=== PATIENT | female | born 1935 ===

== ENCOUNTER 2018-10-18 16:58 | Outpatient (REF) | payer MEDICARE, SELFPAY ==
[2018-10-18 22:05] LABS: Anion Gap 8.8 mmol/L (3-11); BUN 25 mg/dL (7-18); CO2 24.2 mmol/L (21.0-32.0); CREATININE 0.93 mg/dL (0.55-1.02); Calcium 8.5 mg/dL (8.5-10.1); Chloride 108 mmol/L (98-107); Estimated GFR 57.86 (mL/min/1.73m2); Glucose 98 mg/dL (70-100); Potassium 4.8 mmol/L (3.5-5.1); Sodium 141 mmol/L (136-145); TSH (W/Ref FT4) 1.36 uIU/mL (0.358-3.74)
[2018-10-18 22:14] LABS: Abs Immature Grans 0.01 k/cumm (0.0-0.09); Absolute Basophil Count 0.06 k/cumm (0.0-0.2); Absolute Lymphocyte Count 1.54 k/cumm (1.2-3.4); Absolute Monocyte Count 0.52 k/cumm (0.11-0.7); Absolute Neutrophil Count 2.41 k/cumm (1.2-6.7); Basophils % 1.2; Eosinophils % 8.1; HCT 26.2 % (36.0-46.0); HGB 7.5 g/dL (12.0-15.5); Immature Grans % 0.2; Lymphocytes % 31.2; Mean Corp. HGB Concentration 28.6 g/dL (32.0-36.0); Mean Corpuscular Hemoglobin 20.7 pg (27.0-33.0); Mean Corpuscular Volume 72.4 fL (80-95); Mean Platelet Volume 9.6 fL (8.0-11.0); Monocytes % 10.5; Neutrophils % 48.8; Platelet Count 329 x1000/uL (130-400); RBC 3.62 m/cumm (4.00-5.20); RBC Distribution Width 17.9 % (11.7-14.6); White Blood Cell Count 4.94 k/cumm (4.4-10.8)
[2018-10-18 23:07] LABS: Anisocytosis 2+; Diff Comment RBC Morph Reviewed; Hypochromasia 3+; Microcytosis 2+
== END 2018-10-18 17:18 ==
LOC: NCHCN 16:58
PROVIDERS: PCP Family Medicine; Visit Provider Nurse Practitioner Family
DX: R53.83 Other fatigue (principal)
CPT/HCPCS: 80048; 84443; 85025

== ENCOUNTER 2018-10-21 11:51 | Outpatient (REF) | payer MEDICARE, SELFPAY ==
[2018-10-23 18:36] LABS: Iron 17 ug/dL (50-175); Total Iron Binding Capacity 346 ug/dL (250-450); Transferrin Sat 5 % (15-50)
[2018-10-23 19:01] LABS: Ferritin 6 ng/mL (8-388); Folate 14.5 ng/mL (8.6-20.0); Vitamin B12 564 pg/mL (193-986)
== END 2018-10-21 12:11 ==
LOC: NCHCN 11:51
PROVIDERS: PCP Family Medicine; Visit Provider Nurse Practitioner Family
DX: R53.83 Other fatigue (principal); R79.0 Abnormal level of blood mineral
CPT/HCPCS: 82607; 82728; 82746; 83540; 83550

== ENCOUNTER 2018-11-05 09:30 | Outpatient (REF) | payer MEDICARE, SELFPAY ==
[2018-11-05 20:57] LABS: HCT 33.4 % (36.0-46.0); HGB 9.7 g/dL (12.0-15.5)
== END 2018-11-05 09:50 ==
LOC: NCHCN 09:30
PROVIDERS: PCP Family Medicine; Visit Provider Nurse Practitioner Family
DX: D50.9 Iron deficiency anemia, unspecified (principal)
CPT/HCPCS: 85014; 85018

== ENCOUNTER 2020-08-20 19:55 | Outpatient (REF) | payer MEDICARE, SELFPAY ==
[2020-08-20 21:02] LABS: HGB 15.1 g/dL (11.2-15.7); MCHC 33.6 % (32.0-36.0); MCV 92.4 fL (80-95); MPV 11.2 fL (8.0-11.0); Platelet Count 204 10^3/uL (130-400); RBC 4.87 10^6/uL (3.93-5.22); RDW 13.2 % (11.7-14.6); RDW-SD 45.6 fL; WBC 7.28 10^3/uL (4.4-10.8)
[2020-08-20 21:28] LABS: Anion Gap 8.1 mmol/L (3-11); BUN 24 mg/dL (7-18); CO2 24.9 mmol/L (21.0-32.0); CREATININE 0.78 mg/dL (0.55-1.02); Calcium 8.7 mg/dL (8.5-10.1); Chloride 104 mmol/L (98-107); Ferritin 62 ng/mL (8-252); Glucose 94 mg/dL (74-106); Potassium 4.5 mmol/L (3.5-5.1); Sodium 137 mmol/L (136-145)
[2020-08-20 22:10] LABS: Iron 95 ug/dL (50-170)
== END 2020-08-20 20:15 ==
LOC: NCHCN 19:55
PROVIDERS: PCP Family Medicine; Visit Provider Family Medicine
DX: D50.9 Iron deficiency anemia, unspecified (principal)
CPT/HCPCS: 80048; 85027; 82728; 83540